=== PATIENT | female | born 1960 | race African-American/Black ===

== ENCOUNTER 2019-05-24 11:25 | Inpatient (IN) | payer MEDICARE, OTHER ==
[2019-05-24] VITALS (33 sets, daily range): BP systolic 59–157; BP diastolic 18–127
[~2019-05-24] VITALS: Ht 172.7 cm; Wt 83.5 kg
--- NOTE | 2019-05-24 11:30 | NUR ---
ED Nurse Note: Pt arrived AAOx4, awake, talking, with pain yet stable condition. Pt brought in my RA 861 from home C/O ABD pain 05/27. Pt abdomin is distended.
[2019-05-24] MEDS ORDERED: cefTRIAXone 2 GM in NS 55 ML IVPB ONE (11:45)
[2019-05-24] MEDS ORDERED: Morphine Sulfate 4mg/ml Inj (IV USE ONLY) IVP ONE (11:45)
--- NOTE | 2019-05-24 11:45 | NUR ---
ED Nurse Note: Pt vomited 70cc of dark red blood. Pt alert, vss, and notoified.
--- NOTE | 2019-05-24 11:45 | Emergency Room Report ---
History of Present Illness General Chief Complaint: Abdominal Pain Source: Patient, EMS Present Illness HPI 58yo F OF CKD, HYPERTENSION, ALCOHOLIC LIVER DISEASE AND CIRRHOSIS PRESENTS TO THE ER for complaints of 1 week history of abdominal swelling and pain, denies fevers, denies vomiting, urinary symptoms, but does report that this is a new complaint for her. She reports that she has never been dialyzed or had paracentesis before. She took Tylenol last night for the pain, but had minimal relief. Allergies: Coded Allergies: No Known Allergies (Unverified , 05/24/19) Patient History Past Medical History: see triage record Social History: Reports: alcohol use Reviewed Nursing Documentation: PMH: Agreed; PSxH: Agreed Nursing Documentation-PMH Hx Gastrointestinal Problems: Yes - LIVER FAILURE,RENAL FAILURE Review of Systems All Other Systems: negative except mentioned in HPI Physical Exam Vital Signs Date Time Temp Pulse Resp B/P (MAP) Pulse Ox O2 Delivery O2 Flow Rate FiO2 05/24/19 11:24 98.6 102 20 99/60 (73) 97 Room Air Sp02 EP Interpretation: reviewed, normal General Appearance: alert, non-toxic, mild distress Head: normocephalic Eyes: bilateral eye normal inspection, bilateral eye PERRL, bilateral eye EOMI , bilateral eye scleral icterus ENT: normal ENT inspection, hearing grossly normal, normal pharynx, no angioedema, normal voice, moist mucus membranes Neck: normal inspection, full range of motion, supple, supple/symm/no masses Respiratory: chest non-tender, lungs clear, normal breath sounds, chest symmetrical, palpation of chest normal Cardiovascular #1: normal peripheral pulses, regular rate, rhythm, JVD, edema - 1+ anasarca Cardiovascular #2: 2+ radial (R), 2+ radial (L) Gastrointestinal: soft, no guarding, no rebound, distended, hepatomegaly, other - +FLUID WAVE Rectal: deferred Genitourinary: normal inspection, no CVA tenderness Musculoskeletal: back normal, gait/station normal, normal range of motion, non- tender, no calf tenderness Neurologic: alert, responsive, autotransfusionist III-XII nml as tested, motor strength/tone normal, sensory intact, speech normal Psychiatric: judgement/insight normal, memory normal, mood/affect normal Lymphatic: no adenopathy Procedures Critical Care Time Critical Care Time 60 mins of critical care time spent excluding all procedures due to risk of given acute gi bleeding. Medical Decision Making Diagnostic Impression: Primary Impression: Ascites Additional Impression: GI bleed ER Course Pt With large volume ascites.Possible spontaneous bacterial peritonitis, and this is the first time patient has developed large volume ascites according to her history, and she is alert and oriented to person place and situation. She consented to receiving a paracentesis procedure for diagnostic and therapeutic purposes. Ascites fluid labs were ordered, patient will be given prophylactic Rocephin 2 g for possible SBP. She will be admitted to med surgery. Patient developed active GI bleeding here in the ED with small volume vomiting of blood which initially was just gastric material. She was started on IV PPI, and consented to transfusion. 2 units ordered, patient to be admitted to Dr. Mack, to ICU Rhythm Strip Diag. Results Rhythm Strip Time: 11:45 EP Interpretation: yes Rate: 102 Rhythm: NSR, no PVC's, no ectopy Last Vital Signs Date Time Temp Pulse Resp B/P (MAP) Pulse Ox O2 Delivery O2 Flow Rate FiO2 05/24/19 11:24 98.6 102 20 99/60 (73) 97 Room Air Disposition: ADMITTED INPATIENT Condition: Critical Scripts Unable to Obtain Active Prescriptions or Reported Meds ROSEANNA ADAMS M.D May 24, 2019 11:45
[2019-05-24] MEDS ORDERED: Pantoprazole 80 MG in NS 250 ML IV ONE (12:15)
[2019-05-24] MEDS ORDERED: Pantoprazole Inj IVP ONE (12:15)
--- NOTE | 2019-05-24 12:15 | NUR ---
ED Nurse Note: Pt vomited 100cc or dark red blood with BP of 71/45. Pt is AAOx4, placed in prone position, and 1L of NS given. aware.
[2019-05-24 12:18] LABS: HEMATOCRIT 18.2 % (37.0-47.0); HEMOGLOBIN 5.9 G/DL (12.0-16.0); MEAN CORPUSCULAR VOLUME 126 FL (80-99); PLATELET COUNT 58 K/UL (150-450); RED BLOOD COUNT 1.44 M/UL (4.20-5.40); WHITE BLOOD COUNT 5.8 K/UL (4.8-10.8)
[2019-05-24 12:28] LABS: INR 2.3 (0.9-1.1)
--- NOTE | 2019-05-24 12:30 | NUR ---
ED Nurse Note: Rafita WARRANTY ADMINISTRATOR for Dr Goldberg is at the bedside for consult.
[2019-05-24 12:31] LABS: ANION GAP 11 mmol/L (5-15); BLOOD UREA NITROGEN 24 mg/dL (7-18); CALCIUM 8.6 MG/DL (8.5-10.1); CARBON DIOXIDE 26 MMOL/L (21-32); CHLORIDE 103 MMOL/L (98-107); POTASSIUM 3.4 MMOL/L (3.5-5.1); SODIUM 140 MMOL/L (136-145)
[2019-05-24 12:42] LABS: ALANINE AMINOTRANSFERASE 16 U/L (12-78); ALBUMIN 1.5 G/DL (3.4-5.0); ALBUMIN/GLOBULIN RATIO 0.3 (1.0-2.7); ALKALINE PHOSPHATASE 168 U/L (46-116); ASPARTATE AMINO TRANSFERASE 108 U/L (15-37); BILIRUBIN,TOTAL 9.5 MG/DL (0.2-1.0)
--- NOTE | 2019-05-24 12:43 | GI Initial Consult Note ---
History of Present Illness General Date patient seen: May 24, 2019 Time patient seen: 12:36 Reason for Hospitalization: Abdominal Pain Reason for Consultation: Hematemesis Present Illness HPI This is a 58-year-old female patient with a past medical history of a chronic kidney disease, hypertension, EtOH abuse with cirrhosis presents to the emergency room with a severe abdominal swelling, distention, abdominal pain for approximately 1 week. According to the patient, her most recent use of alcohol consisted of one beer approximately 1 day ago. Patient was seen, awake alert oriented x4 with active amount of emesis at bedside. Patient denies any history of hemodialysis or paracentesis. Patient presents today with a WBC of 5.8, hemoglobin 5.9, hematocrit 18.2, platelet of 58, INR of 2.3, creatinine of 3.0, potassium 3.4. Home Meds Unable to Obtain Active Prescriptions or Reported Meds Med list reviewed/reconciled: Yes Allergies: Coded Allergies: No Known Allergies (Unverified , 05/24/19) Patient History History Provided By: Patient, Medical Record PMH Narrative Past Medical History: see triage record Social History: Reports: alcohol use Reviewed Nursing Documentation: PMH: Agreed; PSxH: Agreed Nursing Documentation-PMH Hx Gastrointestinal Problems: Yes - LIVER FAILURE,RENAL FAILURE Social History: Reports: alcohol use Review of Systems All Other Systems: negative except mentioned in HPI Physical Exam Vital Signs Date Time Temp Pulse Resp B/P (MAP) Pulse Ox O2 Delivery O2 Flow Rate FiO2 05/24/19 11:24 98.6 102 20 99/60 (73) 97 Room Air Sp02 EP Interpretation: reviewed, normal Labs Laboratory Tests Test 05/24/19 12:00 White Blood Count 5.8 K/UL (4.8-10.8) Red Blood Count 1.44 M/UL (4.20-5.40) L Hemoglobin 5.9 G/DL (12.0-16.0) *L Hematocrit 18.2 % (37.0-47.0) L Mean Corpuscular Volume 126 FL (80-99) H Mean Corpuscular Hemoglobin 40.8 PG (27.0-31.0) H Mean Corpuscular Hemoglobin Concent 32.3 G/DL (32.0-36.0) Red Cell Distribution Width 16.0 % (11.6-14.8) H Platelet Count 58 K/UL (150-450) L Mean Platelet Volume 9.7 FL (6.5-10.1) Neutrophils (%) (Auto) % (45.0-75.0) Lymphocytes (%) (Auto) % (20.0-45.0) Monocytes (%) (Auto) % (1.0-10.0) Eosinophils (%) (Auto) % (0.0-3.0) Basophils (%) (Auto) % (0.0-2.0) Neutrophils % (Manual) Pending Lymphocytes % (Manual) Pending Platelet Estimate Pending Platelet Morphology Pending Prothrombin Time 23.9 SEC (9.30-11.50) H Prothromb Time International Ratio 2.3 (0.9-1.1) H Activated Partial Thromboplast Time 41 SEC (23-33) H Sodium Level 140 MMOL/L (136-145) Potassium Level 3.4 MMOL/L (3.5-5.1) L Chloride Level 103 MMOL/L (98-107) Carbon Dioxide Level 26 MMOL/L (21-32) Anion Gap 11 mmol/L (5-15) Blood Urea Nitrogen 24 mg/dL (7-18) H Creatinine 3.0 MG/DL (0.55-1.30) H Estimat Glomerular Filtration Rate 19.4 mL/min (>60) Glucose Level 117 MG/DL (74-106) H Calcium Level 8.6 MG/DL (8.5-10.1) Total Bilirubin Pending Aspartate Amino Transf (AST/SGOT) Pending Alanine Aminotransferase (ALT/SGPT) Pending Alkaline Phosphatase Pending Total Protein Pending Albumin Pending Globulin Pending Lipase Pending General Appearance: no apparent distress Head: normocephalic EENT: PERRL/EOMI, normal ENT inspection Neck: supple Respiratory: normal breath sounds, no respiratory distress Cardiovascular: normal rate Gastrointestinal: distended, ascites Rectal: deferred Genitourinary: no CVA tenderness Neurologic: normal inspection, alert, oriented x3, responsive Psychiatric: normal inspection, judgement/insight normal, memory normal Skin: normal inspection, normal color, no rash, warm/dry, palpation normal, well hydrated Lymphatic: normal inspection, no adenopathy Current Medications Current Medications Medications (Trade) Dose Ordered Sig/Smiley Route PRN Reason Start Time Stop Time Status Last Admin Dose Admin Octreotide Acetate 500 mcg/ Sodium Chloride 500 ml @ 50 mls/hr Q10H IV 05/24/19 12:45 06/23/19 12:44 UNV Pantoprazole 80 mg/Sodium Chloride 250 ml @ 25 mls/hr Q10H ONCE IV 05/24/19 12:15 05/24/19 22:14 05/24/19 12:13 Pantoprazole 80 mg/Sodium Chloride 250 ml @ 25 mls/hr Q10H ONCE IV 05/24/19 12:45 05/24/19 22:44 UNV GI: Plan Problems: (1) Electrolyte imbalance (2) Hypercoagulopathy (3) Acute kidney failure (4) ETOH abuse (5) Anemia (6) Esophageal varices (7) Ascites (8) GI bleed Plan This is a 58-year-old female patient with history of EtOH abuse, cirrhosis presents today with severe abdominal distention and hematemesis most likely secondary to esophageal varices. Plan for endoscopy tomorrow. Maintain the patient n.p.o. plus IV fluids Start Protonix drip Start octreotide drip Transfused 2 units, repeat CBC 1 hour post-transfusion Stat paracentesis Vitamin K x1 replace albumin after paracentesis We will follow with additional recommendations postprocedure Discussed with Dr. Goldberg. Thank you for this patient referral, we will follow. The patient was seen and examined at bedside and all new and available data was reviewed in the patients chart. I agree with the above findings, impression and plan. (Patient seen earlier today. Signature stamp does not reflect patient encounter time.). - MD Rhianna MendozaBarrow Neurological InstituteTyler INDUSTRIAL MAINTENANCE ELECTRICIAN May 24, 2019 12:43
[2019-05-24 12:44] LABS: BILIRUBIN,DIRECT 5.9 MG/DL (0.0-0.3)
--- NOTE | 2019-05-24 13:20 | NUR ---
ED Nurse Note: PRBC stared with no adverse reaction.
--- NOTE | 2019-05-24 13:28 | Diagnostic Imaging Report ---
Indication: Shortness of breath Technique: One view of the chest Comparison: none Findings: The heart is enlarged. There are atelectatic changes at the right lung base. Lungs and pleural spaces are otherwise clear. Impression: Cardiomegaly Right basilar atelectasis
--- NOTE | 2019-05-24 13:34 | NUR ---
ED Nurse Note: Report given to Maria Luisa Vega in ICU-I. Pt will be transported to ICU via gurney,vehicle monitor technician and o2 w/RN and tech, ongoing Blood Transfusion no s/o allergic reaction noted, remained a/ox4
--- NOTE | 2019-05-24 13:36 | NUR ---
ED Nurse Note: Pt brought up to ICU. Pt AAOx4, talking, with PRBC running.
--- NOTE | 2019-05-24 14:00 | NUR ---
NURSE NOTES: Received patient from DAMEON Coley. Report given by Mariel nurse manager of community relations. Patient drowsy but alert to name, place, and purpose at this time. Patient complaining of back pain at this time. Patient blood pressure low at 81/56. Patient vomiting bloody emesis 3 times in ER. Raymond at the bedside. Sinus rhythm noted on the telecommunication tower technician with rate of 94 beats per minute. Patient on 2L NC with saturation 100% and RR 19. Patient receiving blood transfusion (one of two PRBC total) for hemoglobin of 5.9. Will ask admitting doctor is the transfusion can be continued now that the patient is admitted to ICU. The sclera of the patient's eyes is yellow at this time and the skin appears jaundice. Patient's abdomen is round, distended, firm, and tender. Patient's admitting diagnosis is ascites and GI bleed. Patient has minimal swelling in the lower extremities non-pitting. Patient has scar tissue on the medial right upper arm. Patient has a hard mass noted on the right upper chest. Will ensure MD is aware. Patient unable to explain what the lump is. Patient has a right forearm 18 gauge peripheral IV that is patent and running the blood transfusion at this time. Patient has left forearm 20G PIV that is patent, bleeding slightly, and running protonix drip at 25mL/hr at this time. Patient has low potassium of 3.4. Will ensure that MD is aware. Patient has an order for paracentesis with albumin to be given after. Will follow up. Patient bed in low position with bed alarm on and call light in reach at this time.
--- NOTE | 2019-05-24 14:15 | NUR ---
NURSE NOTES: Called and left message for Dr Guillen regarding admission orders. Awaiting call back.
--- NOTE | 2019-05-24 14:20 | NUR ---
NURSE NOTES: Left message for Dr Goldberg regarding admission orders. Awaiting call back.
[2019-05-24] MEDS ORDERED: Phytonadione 1 MG in D5W 55 ML IVPB ONE (14:30)
--- NOTE | 2019-05-24 14:30 | NUR ---
NURSE NOTES: Spoke with Dr Lenz when he rounded on the patient. Updated him on the patient condition. He reported that he would place orders for the patient. Will follow orders when placed.
[2019-05-24] MEDS ORDERED: Heparin1,000 units/500ml Premix(Conc:2 units/ml) IV PRN (15:00)
[2019-05-24] MEDS ORDERED: Lidocaine 1% Plain 30 ml INJ PRN (15:00)
[2019-05-24] MEDS ORDERED: Octreotide Acetate 500 MCG in Sodium Chloride 499 ML IV SCH (15:00)
--- NOTE | 2019-05-24 15:06 | NUR ---
NURSE NOTES: Spoke with Dr Guillen on the telephone. Received admission orders. Also received order for PICC line stat, Levophed drip, and order to continue blood transfusion from ER. Orders read back, verified, and placed at this time.
--- NOTE | 2019-05-24 15:07 | NUR ---
NURSE NOTES: Spoke with Dr Goldebrg on the phone. Received order to given 2 unit FFP now and obtain CBC, PT, and PTT labs [address] hours after transfusion finished. Dr Goldberg made aware. No new orders regarding paracentesis received. Notified Dr Goldberg that patient remains unstable. Addendum: 05/24/19 at 2141 by Maria Luisa Ryder RN PICC team no longer inserting PICC lines for the day. Notified Dr Goldberg when he called. He reported that he would call ER doctor to come insert the line. Will prepare for central line insertion at this time. Order changed from PICC line insertion to central line insertion per Dr Goldberg. Order read back, verified, and placed.
[2019-05-24] MEDS ORDERED: Phytonadione 10 MG in D5W 55 ML IVPB ONE (16:00)
--- NOTE | 2019-05-24 16:00 | NUR ---
NURSE NOTES: Patient remains unstable. Levophed drip running, protonix drip running, sandostatin drip running. Patient now has central line, triple lumen catheter in the right femoral vein inserted by ER doctor using aseptic technique. Patient has taylor inserted using aseptic technique per Dr Bassett. Small amount of dark mohit urine noted. Patient blood pressure remains unstable. Will continue to monitor and titrate levophed per protocol. Patient tossing and turning but blood pressure too unstable for pain medication at this time. Will continue to monitor. Central line oozing at this time. Will replace dressing as soon as possible. Patient bed in low position with bed alarm on and call light in reach.
--- NOTE | 2019-05-24 16:50 | Diagnostic Imaging Report ---
Indication: Acute renal failure Technique: Grayscale and duplex images of the kidneys, retroperitoneum, and bladder were obtained. Comparison: none Findings: Right kidney measures 11 cm in length. Left kidney measures 10 cm in length. The kidneys demonstrate slightly increased echogenicity. No hydronephrosis. 1.5 cm calcification is seen in the right renal sinus, likely within the renal pelvis. There may be a second calcification present as well. There are small bilateral renal cysts. Normal inferior vena cava. Bladder is not well visualized, grossly normal. Incidentally noted is considerable ascites Impression: Echogenic kidneys, consistent with medical renal disease Negative for hydronephrosis One or more right renal sinus calculi Bilateral renal cysts Considerable ascites.
--- NOTE | 2019-05-24 17:20 | Emergency Room Report ---
History of Present Illness General Chief Complaint: Abdominal Pain Source: Patient, Medical Record Present Illness Allergies: Coded Allergies: No Known Allergies (Unverified , 05/24/19) Nursing Documentation-PMH Hx Gastrointestinal Problems: Yes - LIVER FAILURE,RENAL FAILURE Physical Exam Vital Signs Date Time Temp Pulse Resp B/P (MAP) Pulse Ox O2 Delivery O2 Flow Rate FiO2 05/24/19 11:24 98.6 102 20 99/60 (73) 97 Room Air 05/24/19 13:45 2.0 100 Procedures Critical Care Time Critical Care Time i. I feel this is a highly complex case requiring extensive working including EKG/Rhythm strip, Xray/CT/US, Blood/urine lab work, repeat exams while in ED, and administration of strong opiates/narcotics for pain control, admission to hospital or close patient follow up. Total time: 30 min bedside evaluation and treatment excludes procedures (EKG). Reason for critical care: hypotensive, GI bleed, anemia Possible complications: hypotension, hypertension, GA, shock, arrhythmias, metabolic acidosis, end organ damage, respiratory failure. Interventions: central line Course: Patient admitted with GI bleed. Hypotensive and anemic. BP low despite blood transfusion. Patient requiring central line placement. Discussed with patient. Placed in right femoral. Consultations: nursing staff, EMS, family Performed by: Dr Nguyen Tolerated well condition = critical j. because of unstable vital signs this patient had a condition that could potentially threaten life or limb. I feel this is a critical patient who required my full attention while patient was considered critical. Total Critical Care Time excluding procedures was greater than 35 minutes Central Line Central Line : Consent: Verbal Central Line Lumen: triple Maximal Sterile Barrier Tech: no cap, no mask, no sterile gown, no sterile gloves, no large sterile sheet, no hand hygiene, no chlorhexidine prep Central Line Postion: femoral (R) Anesthesia: Lidocaine Complications: none Central Line Post Position: sutured, good blood return Attempts: One Patient Tolerated: Well Complications: None Medical Decision Making Diagnostic Impression: Primary Impression: Ascites Additional Impression: GI bleed Last Vital Signs Date Time Temp Pulse Resp B/P (MAP) Pulse Ox O2 Delivery O2 Flow Rate FiO2 05/24/19 17:05 74/42 05/24/19 13:46 97.7 87 18 97 Room Air 05/24/19 13:45 2.0 100 Disposition: ADMITTED INPATIENT Condition: Critical Scripts Unable to Obtain Active Prescriptions or Reported Meds Referrals: NOT CHOSEN IPA/,REFERRING (PCP) Frandy Nguyen MD May 24, 2019 17:20
[2019-05-24] MEDS ORDERED: Metoclopramide 10mg/10ml Liq NG SCH (18:00)
[2019-05-24] MEDS ORDERED: Hydromorphone 0.5mg/0.5ml inj IVP PRN (18:30)
--- NOTE | 2019-05-24 18:30 | NUR ---
NURSE NOTES: Dr Guillen called. Reported that patient is still having pain. Blood pressure remains low with Levophed at 24mcg/hr. Received telephone order for Dilaudid 0.5mg IVP every 4 hours for pain as needed. Order read back, verified, and placed at this time.
--- NOTE | 2019-05-24 19:15 | NUR ---
HAND-OFF: Report given to DAMEON Michelle. Patient blood pressure remains unstable. Levophed at 30mcg/hr. Another medication may be needed. Endorsed to follow up. 2 PRBC given. 2 FFP to be given. Endorsed to follow up. CBC, PT, and PTT to be checked 2 hours after FFP finished. Endorsed to follow up. Paracentesis and EGD to be done tomorrow if patient stable enough. ENdorsed to follow up.
--- NOTE | 2019-05-24 19:29 | NUR ---
CASE MANAGEMENT: REVIEW 58Y/FEMALE BIBA FROM HOME CC: ABD PAIN 05/27 SI: ASCITES . GI BLEED T 98.6 HR 102 RR 20 BP 99/60 SAT 97% ROOM AIR H/H 5.9/18.2 BUN 24 CR 3.0 IS: CEFTRIAXONE IV X1 ZOFRAN IV X1 MORPHINE 4MG IV X1 PATIENT ADMITTED TO ICU 05/24/2019 DCP: PATIENT FROM HOME
--- NOTE | 2019-05-24 19:40 | NUR ---
NURSE NOTES: PATIENT LETHARGIC, DROWSY, WEAKLY RESPONSE TO NAME AND TACTILE STIMULI, NO VERBAL COMMUNICATION STATUS, IRRITABLE IN BED, RESPIRATION REGULAR ON O2 2LPM VIA NC, ABDOMEN DISTENDED AND TENDER, HYPOACTIVE BOWEL SOUND, NOTED JAUNDICE, F/C INTACT AND PATENT, OLIGURIA, DARK ADAN COLOR URINE OUTED, TLC TO RIGHT FEMORAL, INTACT, LEAKED STATUS, PERIPHERAL LINE TO RIGHT HAND , RIGHT FORE ARM AND LEFT AC INTACT AND PATENT, ONGOING LEVOPHED 30MCG/RYAN, PROTONIX 25ML/HR AND SANDOSTATIN 50ML/HR VIA TLC, MADE LOWER BED POSITION, PROVIDED CALL LIGHT WITHIN REACH, WILL CONTINUE TO MONITOR.
--- NOTE | 2019-05-24 19:55 | NUR ---
NURSE NOTES: CALLED DR. HOOKER REGARDING SBP BELOW 70MMHG THAT LEFT MESSAGE.
[2019-05-24] MEDS ORDERED: Dyna-Hex 2% Top Sol 2oz TOPIC SCH ×2 (20:00)
--- NOTE | 2019-05-24 20:15 | NUR ---
NURSE NOTES: STARTED FFP I UNIT ([id number]) TRANSFUSION AFTER 2 NURSES VERIFICATION.
--- NOTE | 2019-05-24 20:23 | NUR ---
NURSE NOTES: CALLED BACK FROM DR. MAHER THAT INFORMED PT'S LOWER BP WITH LEVOPHED DRIP MAXIMUM DOSE, BLOOD TRANSFUSION STATUS, RECEIVED NEW ORDER AND CARRY OUT.
--- NOTE | 2019-05-24 20:30 | NUR ---
NURSE NOTES: NO SIDE REACTION NOTED.
--- NOTE | 2019-05-24 20:55 | NUR ---
NURSE NOTES: FINISHED FFP TRANSFUSION.
--- NOTE | 2019-05-24 21:15 | NUR ---
NURSE NOTES: STARTED FFP I UNIT ([id number]) TRANSFUSION AFTER 2 NURSES VERIFICATION.
[2019-05-24] MEDS ORDERED: Phenylephrine 50 MG in D5W 245 ML IV SCH (21:30)
--- NOTE | 2019-05-24 21:30 | NUR ---
NURSE NOTES: NO SIDE REACTION NOTED.
[2019-05-24] MEDS ORDERED: Norepinephrine Bitartrate 8 MG in D5W 500ml 492 ML IV SCH (22:00)
[2019-05-24] MEDS ORDERED: Pantoprazole 80 MG in NS 250 ML IV SCH (22:00)
--- NOTE | 2019-05-24 22:10 | NUR ---
NURSE NOTES: NO SIDE REACTION NOTED.
--- NOTE | 2019-05-24 22:20 | NUR ---
NURSE NOTES: SEEN PROJECTILE FRESH BLOOD VOMIT AT THIS TIME, ORALLY SUCTION WAS DONE 300ML OUTED.
--- NOTE | 2019-05-24 22:24 | NUR ---
CODE BLUE: See Code sheet which remains on paper.
[2019-05-24] MEDS ORDERED: Tubing IV Secondary IV ONE ×3 (22:44)
[2019-05-24] MEDS ORDERED: NS 275ml ONE ×2 (22:44)
[2019-05-24] MEDS ORDERED: Etomidate 40mg/20ml Inj IV ONE (22:44)
[2019-05-24] MEDS ORDERED: Succinylcholine 20mg/ml 10ml vial ONE (22:44)
[2019-05-24] MEDS ORDERED: Tubing Blood Filter IV ONE (22:44)
--- NOTE | 2019-05-24 23:08 | Emergency Room Report ---
History of Present Illness General Chief Complaint: Abdominal Pain Source: Medical Record, Caregiver Present Illness HPI This patient is a 58-year-old female who was admitted for end-stage liver disease with ascites and GI bleed. She is an alcoholic. She was admitted to the ICU for GI bleeding, anemia, hypotension. She received blood transfusion and is on pressors. After blood transfusion, there is checked on her and there was no pulse. Patient did have a large volume of bright red blood from her mouth. He also had rectal bleeding. A CODE BLUE was called. I responded to it. On my arrival, CPR was in progress. There was a large amount of blood on the bed. She received 1 mg of epinephrine already. During the code, she received a total of 3 mg epinephrine. She was intubated. She never regained a pulse. She was asystolic after third epinephrine. I called a code and pronounced her at 2242. Allergies: Coded Allergies: No Known Allergies (Unverified , 05/24/19) Patient History Now: No Nursing Documentation-PM Hx Cardiac Problems: Yes Hx Hypertension: Yes Hx Cancer: No Hx Gastrointestinal Problems: Yes - LIVER FAILURE,RENAL FAILURE Hx Neurological Problems: No Physical Exam Vital Signs Date Time Temp Pulse Resp B/P (MAP) Pulse Ox O2 Delivery O2 Flow Rate FiO2 05/24/19 11:24 98.6 102 20 99/60 (73) 97 Room Air 05/24/19 13:45 2.0 100 Procedures CPR/Code Blue CPR/Code Blue Narrative Please see CODE BLUE sheet for full information. She received 3 mg of epinephrine in total. She was intubated. Never had a pulse. Monitor showed asystole. No Doppler pulse. Patient was pronounced at 10:42 PM. Intubation Intubation : Consent: Emergent Intubation Method: orotracheal Tube Size (cm): 7.5 Medications: Etomidate, Succinylcholine Breath Sounds after Intubation: equal Intubation Complications: no complications Post Intubation Xray: No Attempts: One Patient Tolerated: Well Complications: None Medical Decision Making Diagnostic Impression: Primary Impression: Ascites Additional Impressions: GI bleed Cardiac arrest Last Vital Signs Date Time Temp Pulse Resp B/P (MAP) Pulse Ox O2 Delivery O2 Flow Rate FiO2 05/24/19 22:08 103/46 05/24/19 21:24 95 05/24/19 20:33 100 Nasal Cannula 3.0 98 05/24/19 19:00 29 05/24/19 13:46 97.7 Status: worsened Disposition: Condition: Scripts Unable to Obtain Active Prescriptions or Reported Meds Referrals: NOT CHOSEN IPA/,REFERRING (PCP) Rob Moctezuma MD May 24, 2019 23:08
--- NOTE | 2019-05-24 23:50 | NUR ---
NURSE NOTES: CALLED DR. HOOKER REGARDING PT THAT LEFT MESSAGE AT 2346PM, CALLED DR. GARCIA REGARDING PT THAT MD WAS AWARE AT 2348PM, CALLED DR. MAHER REGARDING PT AT 2242PM AFTER CODE BLUE THAT LEFT MESSAGE.
--- NOTE | 2019-05-25 00:15 | Consultation ---
DATE OF CONSULTATION: 05/24/2019 CONSULTING PHYSICIAN: Jay Bassett M.D. REFERRING PHYSICIAN: Heber Guillen M.D. REASON FOR CONSULTATION: 1. Acute kidney injury. 2. Chronic kidney disease. 3. Hypotension. 4. GI bleed. HISTORY OF PRESENT ILLNESS: The patient is a 58-year-old female admitted over early this morning for evaluation and care of active GI bleed, severe anemia when it was noted that the patient had a hemoglobin of 5.9, BUN 24, creatinine 3, potassium 3.4. Gastroenterology was consulted. The patient was transferred to the intensive care unit as she was hypotensive with possible esophageal variceal bleed. Unclear of her baseline creatinine. ALLERGIES: No known drug allergies. PAST MEDICAL HISTORY: 1. Chronic kidney disease. 2. Hypertension. 3. Alcoholic liver disease. 4. Cirrhosis. SOCIAL HISTORY: Chronic alcohol use. No tobacco or illicit drug use. PAST SURGICAL HISTORY: Noncontributory. FAMILY HISTORY: Positive for hypertension and diabetes. REVIEW OF SYSTEMS: NEUROLOGIC: The patient denies headache, change in vision, syncope, or presyncopal episodes. CARDIOVASCULAR: No current chest pain, palpitations, or angina. PULMONARY: No difficulty breathing, productive cough, or sputum. GASTROINTESTINAL/GENITOURINARY: The patient having some nausea and vomiting. No diarrhea. ENDOCRINOLOGY: No night sweats, fevers, or chills. MUSCULOSKELETAL: The patient feeling weak, tired, and ill. LABORATORY DATA: Labs dated 05/24/2019, sodium 140, potassium 3.4, creatinine 3, BUN 24. Hemoglobin 5.9, white cell count 5.8, platelet count 58. INR 2.3. PHYSICAL EXAMINATION: VITAL SIGNS: Blood pressure 83/47, respiratory rate 18, pulse 87, temperature 97.7, 97% oxygen saturation on room air. GENERAL: The patient awake, ill appearing, unstable. HEENT: Extraocular muscles intact. No lymphadenopathy noted. The patient noted to have icteric sclerae. CARDIOVASCULAR: S1, S2. No rubs or gallops. PULMONARY: Clear to auscultation bilaterally. No rales, rhonchi, or wheezes. ABDOMINAL: Nondistended, nontender. EXTREMITIES: No edema. ASSESSMENT AND PLAN: 1. Acute kidney injury. At this time, most likely secondary to ischemic ATN from profound hypotension and severe anemia. We will aggressively volume resuscitate the patient with IV fluids, blood transfusion, and initiate IV pressor support to maintain a systolic blood pressure of approximately 80 to 85. 2. Active GI bleed. Hemoglobin 5.9. I have ordered vitamin K. The patient receiving blood transfusion and FFP is pending. Gastroenterology to evaluate for possible EGD. They have okayed the use of IV pressors, Dr. Goldberg. 3. Hypokalemia. At this time mild. We will not replace as the patient actively bleeding. Potassium expected to rise in light of renal insufficiency. 4. Hypotension. We will initiate IV pressor support. ER has been consulted for central line. Jay Bassett MD DR: MAURICE JOB#: [id number] CC:
--- NOTE | 2019-05-25 02:30 | History and Physical Report ---
DATE OF ADMISSION: 05/24/2019 HISTORY OF PRESENT ILLNESS: This is a 58-year-old female with a history of alcoholic liver disease. She is also known to have hypertension and CKD. She came to the hospital with abdominal discomfort and swelling and also abdominal pain. In the ER, she reports she also had black stools, and later on she was found to have hematemesis. The patient admits to recent alcohol use as recently as a day ago. The patient on my evaluation is awake and alert; however, has been having small amounts of hematemesis. PAST MEDICAL HISTORY: Alcoholic liver cirrhosis, hypertension, and CKD. No other previous history known. MEDICATIONS: Home medications, the patient is unable to recall. ALLERGIES: None reported. PAST SURGICAL HISTORY: None reported. REVIEW OF SYSTEMS: Denies any headaches. Hematemesis as noted above. No hemoptysis. No other bleeding disorder. PHYSICAL EXAMINATION: GENERAL: Reveals elderly female, 58-year-old. HEENT: Unremarkable. LUNGS: Clear breath sounds bilaterally. ABDOMEN: Distended and tympanic. EXTREMITIES: There is 1+ edema. LABORATORY DATA: Lab testing shows white count 5.8, hemoglobin 5.9, platelet count is 58,000. Creatinine is 3. Coags show INR of 2.3. X-ray of chest was was obtained, which shows right basilar atelectasis. IMPRESSION: 1. Upper GI bleed. 2. Liver cirrhosis. 3. CKD. 4. Hypertension. DISCUSSION: The patient has been started on octreotide. She is hypotensive right now with blood pressure of 76/40 and is being titrated up on Levophed, heart rate is 104, respirations 20, she is afebrile. I have consulted Nephrology and GI. I have spoken personally with both specialists. She had already been seen by Nephrology and no benefits had been entered. She has been started on fluids. Blood replacement, Levophed, and octreotide. GI blood products and plans noted for endoscopy as soon as the patient is clinically stable. Heber Guillen M.D. DR: Will JOB#: [id number] CC:
--- NOTE | 2019-05-26 07:34 | Discharge Summary ---
Discharge Summary Discharge Summary _ SUMMARY DATE OF ADMISSION: 05/24/2019 DATE OF EXPIRATION: 05/24/2019 REASON FOR ADMISSION: 58 years old female with past medical history of hypertension, alcoholic liver disease, cirrhosis, chronic kidney disease, presented to emergency department with complaint of abdominal swelling for one week with associated pain. She denied fever or chills. She denied vomiting. She denied urinary symptoms. Patient never had paracentesis in the past. Patient reported taking Tylenol last night with minimal relief. Upon evaluation blood pressure was on the low side 99/60, and she was slightly tachycardic at 102. Laboratory work-up revealed hemoglobin 5.9, hematocrit 18.2. WBC 5.8. Platelet count 58. INR 2.3. Potassium 3.4 BUN 24, creatinine 3.0 Total bilirubin 9.5, direct bilirubin 5.9. AST 108, ALT 16. Lipase 228. Chest x-ray demonstrated cardiomegaly and right basilar atelectasis. Renal ultrasound showed echogenic kidney consistent with medical renal disease , no hydronephrosis. Bilateral renal cyst. Patient received in emergency department Rocephin for possible spontaneous bacterial peritonitis. Paracentesis was ordered. While in the emergency department , she developed active GI bleeding. Patient started on IV Protonix and consented for transfusion of 2 units of packed red blood cells. Patient subsequently admitted to intensive care unit. CONSULTANTS: GI specialist Dr. Goldberg personnel representative Dr.De Greer [facility] COURSE: Patient admitted to ICU. Patient was transfused with 2 units of packed red blood cells and 1 unit of fresh frozen plasma. Patient was started on IV fluids , and was kept NPO. Patient started on Protonix and octreotide drips. Plan was to do endoscopy in the morning. Patient was waiting for paracentesis . Vitamin K x1 given. Patient's blood pressure dropped, and she required central line placement for pressors. Central line was placed via right femoral vein by ED physician. Patient started on pressors to keep mean arterial blood pressure above 65. Hemodynamic status was closely monitored and remained unstable. Patient required two different pressors: phenylephrine and Levophed. CODE BLUE was called later that day after patient was found to have no pulse . Patient also had large volume of bright red blood from her mouth as well as the rectal bleeding. CODE BLUE initiated as per ACLS protocol. Patient was orally intubated. Unfortunately , all attempts appeared to be futile. Monitor showed asystole, no palpable pulses, no Doppler pulses. Patient subsequently was pronounced on 05/21/2019 at 21: 07. Cause of : cardiopulmonary arrest FINAL DIAGNOSES: Status post cardiac arrest End-stage liver disease/liver cirrhosis Active GI bleeding Hypotension with shock due to active bleeding Ascites Acute kidney injury on chronic kidney disease Electrolyte imbalance Hypercoagulability Anemia Esophageal varices ETOH abuse I have been assigned to dictate discharge summary for this account. I was not involved in the patient's management. Tyra Alanis NP May 26, 2019 07:34
== END 2019-05-24 22:45 | disposition expired | DRG 432 ==
LOC: EDBD 11:25 → EMR 11:50 → ICU 11:53 → EDBEDREQ 12:06 → EDBEDREQSVC 12:06 → EDBEDREQ 12:18
PROC: 30243N1 Transfusion of Nonautologous Red Blood Cells into Central Vein, Percutaneous Approach (ICD-10-PCS; principal; 2019-05-24)
PROC: 06HM33Z Insertion of Infusion Device into Right Femoral Vein, Percutaneous Approach (ICD-10-PCS; principal; 2019-05-24)
PROC: 30233K1 Transfusion of Nonautologous Frozen Plasma into Peripheral Vein, Percutaneous Approach (ICD-10-PCS; principal; 2019-05-24)
PROC: 0BH17EZ Insertion of Endotracheal Airway into Trachea, Via Natural or Artificial Opening (ICD-10-PCS; principal; 2019-05-24)
PROC: 5A12012 Performance of Cardiac Output, Single, Manual (ICD-10-PCS; principal; 2019-05-24)
DX: K70.31 Alcoholic cirrhosis of liver with ascites (principal); I85.11 Secondary esophageal varices with bleeding; N17.0 Acute kidney failure with tubular necrosis; I12.9 Hypertensive chronic kidney disease with stage 1 through stage 4 chronic kidney disease, or unspecified chronic kidney disease; N18.9 Chronic kidney disease, unspecified; E87.8 Other disorders of electrolyte and fluid balance, not elsewhere classified; F10.20 Alcohol dependence, uncomplicated; I95.9 Hypotension, unspecified; E87.6 Hypokalemia; D64.9 Anemia, unspecified
CPT/HCPCS: 31500; 36415; 71045; 76770; 80053; 82248; 82962; 83690; 85007; 85025; 85610; 85730; 86850; 86900; 86901; 86920; 86927; 87081; 96361; 96365; 96367; 96375; 99291; J0171; J2370; J2405; J3430